=== PATIENT | male | born 1940 | race Caucasian/White ===

== ENCOUNTER 2016-10-05 10:55 | Outpatient (CLI) | payer MEDICARE | END 2016-10-05 10:56 | LOC: CARD 10:55 | PROVIDERS: ATTEND Internal Medicine Cardiovascular Disease | DX: I25.5 Ischemic cardiomyopathy (principal); I25.10 Atherosclerotic heart disease of native coronary artery without angina pectoris; R06.02 Shortness of breath ==

== ENCOUNTER 2016-10-19 12:42 | Outpatient (CLI) | payer MEDICARE ==
--- NOTE | 2016-10-20 01:27 | Diagnostic Imaging Report ---
Name: MARILYN FRANCIS ~~ ~~ : 36 ~~ Acc #: [id number]~~ DOS: Oct 19, 2016 1:15:32 PM CDT ~~ Mod: US ~~ Desc: US EXAM ABD BACK WALL 1 of 1 ANDRES MCDERMOTT~ [address] [address] ~ ~ ~ ~ Report Submission Date: Oct 19, 2016 3:34:58 PM CDT Patient ~ Study Name: MARILYN FRANCIS ~ Date: Oct 19, 2016 1:15:32 PM CDT ~ Modality Type: US Gender: M ~ Description: US EXAM ABD BACK WALL : 36 ~ Institution: [facility] Physician: ANDRES MCDERMOTT ~ ~ ~ ~ Ultrasound renal HISTORY: ~ Chronic kidney disease FINDINGS: ~ The right kidney measures 10.5 x 5.2 x 6.4 cm and exhibits normal parenchymal echogenicity and morphology without obstructive uropathy or nephrolithiasis. ~ The left kidney is also unremarkable and measures 11.2 x 6.3 x 5.6 cm. ~ Urinary bladder exhibits a moderate postvoid bladder residual and contains a midline cystic lesion along the bladder floor measuring 2.8 x 2.6 x 3 cm. IMPRESSION: ~ Unremarkable kidneys. ~ Cystic lesion along the bladder floor, potentially representing an ureterocele or prostate cystic mass. ~Consider cystoscopy for further evaluation. Moderate post void residual. ~ Electronically signed on Oct 19, 2016 3:34:58 PM CDT by: Andres LIRIANO
== END 2016-10-19 12:43 ==
LOC: RAD 12:42
PROVIDERS: ATTEND Internal Medicine Nephrology
DX: N18.3 Chronic kidney disease, stage 3 (moderate) (principal); I12.9 Hypertensive chronic kidney disease with stage 1 through stage 4 chronic kidney disease, or unspecified chronic kidney disease; E78.2 Mixed hyperlipidemia; L50.9 Urticaria, unspecified; I25.10 Atherosclerotic heart disease of native coronary artery without angina pectoris; R60.0 Localized edema; Z68.32 Body mass index [BMI] 32.0-32.9, adult
CPT/HCPCS: 76770

== ENCOUNTER 2016-11-21 11:06 | Outpatient (CLI) | payer MEDICARE, OTHER ==
[2016-11-21 12:10] LABS: BASOPHILS % 0.4 (0.0-1.5); EOSINOPHILS % 0.4 % (0.0-6.8); MEAN CORPUSCULAR HEMOGLOBIN 28.7 pg (28.0-34.0); MEAN CORPUSCULAR VOLUME 87.7 fl (80.0-100.0); MONOCYTES % 5.3 % (0.0-11.0); NEUTROPHILS # 9.4 # k/uL (1.4-7.7)
[2016-11-21 12:57] LABS: eGFR (African) > 60; eGFR (Non-African) > 60
--- NOTE | 2016-11-21 14:45 | Diagnostic Imaging Report ---
SOURAV MURDOCK - KESHIA [facility] [address] [facility] [address] [address] Report Submission Date: Nov 21, 2016 12:19:24 PM CDT Patient Study Name: MARILYN FRANCIS Date: Nov 21, 2016 11:42:15 AM CDT Modality Type: US Gender: M Description: BILAT US DVT : 36 Institution: [facility] Physician: SOURAV MURDOCK - KESHIA Duplex imaging of the lower extremities Clinical history: Left knee pain and swelling for 1 day. Rule out deep venous thrombosis. Technique: Real time sonography of the lower extremities is performed in transverse and longitudinal views. Doppler interrogation and color flow imaging are additionally used. Findings: Right lower extremity is free of intraluminal thrombus. Deep venous thrombosis is evident in the left lower extremity in the mid femoral vein extending into the popliteal vein. These veins are incompletely compressible. Interstitial edema is evident in the left calf. Impression: 1. Deep venous thrombosis on the left extending from mid femoral vein to the popliteal vein. 2. Interstitial edema in the left calf. Electronically signed on Nov 21, 2016 12:19:24 PM CDT by: William LIRIANO
== END 2016-11-21 11:07 ==
LOC: RAD 11:06
PROVIDERS: ATTEND Family Medicine
DX: M79.605 Pain in left leg (principal); Z51.81 Encounter for therapeutic drug level monitoring; Z79.01 Long term (current) use of anticoagulants
CPT/HCPCS: 36415; 80053; 80178; 85025; 85610; 93970

== ENCOUNTER 2017-04-29 16:00 | Emergency (ER) | payer MEDICARE ==
[2017-04-29 16:50] LABS: BASOPHILS % 0.7 (0.0-1.5); EOSINOPHILS % 2.9 % (0.0-6.8); MEAN CORPUSCULAR HEMOGLOBIN 29.9 pg (28.0-34.0); MEAN CORPUSCULAR VOLUME 86.7 fl (80.0-100.0); MONOCYTES % 5.1 % (0.0-11.0); NEUTROPHILS # 6.4 # k/uL (1.4-7.7)
[2017-04-29 16:55] LABS: eGFR (African) > 60; eGFR (Non-African) 52
--- NOTE | 2017-04-29 17:00 | Diagnostic Imaging Report ---
[facility] [address] [facility].[address] [address] Report Submission Date: Apr 29, 2017 4:51:41 PM CDT Patient Study Name: MARILYN FRANCIS Date: Apr 29, 2017 4:32:45 PM CDT Modality Type: CR Gender: M Description: CHEST : 36 Institution: [facility] Physician: PETE ISAAC - ER Examination: Portable chest History: Chest discomfort Comparison exam: None available Findings: Single view of the chest demonstrates a prominent cardiac and mediastinal silhouette. Mild hilar haziness. No effusion. Osseous structures are appropriate for age. Impression: Mild perihilar haziness. No gross effusion. Electronically signed on Apr 29, 2017 4:51:41 PM CDT by: Oh LIRIANO
--- NOTE | 2017-04-29 17:24 | ED Physician Documentation ---
General Adult - HISTORIAN Historian: patient - HPI Stated Complaint: chest pain Chief Complaint: General Adult Onset: days ago (1) Timing: still present Severity: moderate Further Comments: yes (Pt is a 76 yo male with c/o intermittent sharp stabbing pain at his L lower ribs x 1 day, which lasts only briefly and occurs with a deep breath or a cough or with movement. Pt has not had n/v, diaphoresis or sob. Pt took some Tylenol last evening but this was not very effective. Pt says that if he applies pressure and holds his chest, it does not hurt nearly so much when he coughs.) - ROS CONST: no problems EYES/ENT: none CVS/RESP: chest pain (intermittent stabbing pain) GI/: none MS/SKIN/LYMPH: none - PAST HX Past History: hypertension, other ([place], cardiac stents; GERD; anxiety) Allergies/Adverse Reactions: Allergies Allergy/AdvReac Type Severity Reaction Status Date / Time Zuqjiic-Jco-Qtr Reductase Allergy Verified 04/29/17 16:43 Inhibitor Home Medications: Ambulatory Orders Medication Instructions Recorded Bupropion HCl [Zyban] 150 mg PO BID 04/29/17 Buspirone HCl [Buspar] 10 mg PO BID 04/29/17 Clonazepam [Clonazepam] 0.5 mg PO HS 04/29/17 Doxazosin Mesylate [Cardura Xl] 4 mg PO DAILY 04/29/17 Furosemide [Lasix] 40 mg PO DAILY 04/29/17 Lisinopril [Zestril] 10 mg PO DAILY 04/29/17 [place] Carbonate [[place] 300 mg PO BID 04/29/17 Carbonate ER] Metoprolol Tartrate [Lopressor] 25 mg PO BID 04/29/17 Omeprazole 20 mg PO DAILY 04/29/17 Potassium Chloride [Klor-Con 10 mg PO DAILY 04/29/17 Sprinkle] Rivaroxaban [Xarelto] 20 mg PO DAILY 04/29/17 - SOCIAL HX Smoking History: quit greater than 1 year - FAMILY HX Family History: No - VITAL SIGNS Vital Signs: Vital Signs Temp Pulse Resp BP Pulse Ox 97.8 F 51 L 14 146/56 95 04/29/17 16:00 04/29/17 17:03 04/29/17 16:00 04/29/17 16:00 04/29/17 17:03 - REVIEWED ASSESSMENTS Nursing Assessment Reviewed: Yes Vitals Reviewed: Yes Progress - Progress Progress: CXR: Mild perihilar haziness. No gross effusion. Rx Z-geronimo NSAIDS ? pleuritic chest pain - EKG/XRAY/CT EKG: rhythm (sinus bradycardia, HR=54; ) XRAY: chest ( Mild perihilar haziness. No gross effusion.) ED Results Lab/Radiology - Lab Results Lab Results: Lab Results 04/29/17 04/29/17 04/29/17 16:40 16:40 16:40 WBC RBC Hgb Hct MCV MCH MCHC RDW Plt Count Neut % (Auto) Lymph % (Auto) Luna % (Auto) Eos % (Auto) Baso % (Auto) Neut # (Auto) Lymph # (Auto) Luna # (Auto) Eos # (Auto) Baso # (Auto) Reactive Lymphs % Reactive Lymphs # PT 12.5 Seconds H Seconds (9.4-11.6) INR 1.19 (0.9-1.2) D-Dimer 373 ng/mL ng/mL (6.0-682) Sodium 137 mmol/L mmol/L (137-145) Potassium 3.9 mmol/L mmol/L (3.5-5.1) Chloride 106 mmol/L mmol/L (98-107) Carbon Dioxide 23 mmol/L mmol/L (22-30) BUN 30 mg/dL H mg/dL (9-20) Creatinine 1.40 mg/dL H mg/dL (0.66-1.25) Estimated Creat Clear 69 Est GFR ( Amer) > 60 (60 - ) Est GFR (Non-Af Amer) 52 L (60 - ) Glucose 107 mg/dL H mg/dL (74-106) Calcium 8.9 mg/dL mg/dL (8.4-10.2) Total Bilirubin 0.3 mg/dL mg/dL (0.2-1.3) AST 25 U/L U/L (15-46) ALT 27 U/L U/L (13-69) Alkaline Phosphatase 71 U/L U/L (38-126) Creatine Kinase 51 U/L L U/L (55-170) CK-MB (CK-2) 1.9 ng/mL ng/mL (0.0-5.6) Troponin I < 0.03 ng/mL L ng/mL (0.03-0.06) NT-Pro-B Natriuret Pep 422.9 pg/mL pg/mL (15.0-450.0) Total Protein 7.2 g/dL g/dL (6.3-8.2) Albumin 3.7 g/dL g/dL (3.5-5.0) 04/29/17 16:40 WBC 9.60 K/ul K/ul (4.00-12.00) RBC 4.45 M/ul M/ul (3.90-5.20) Hgb 13.3 g/dL g/dL (12.0-18.0) Hct 38.6 % % (37.0-53.0) MCV 86.7 fl fl (80.0-100.0) MCH 29.9 pg pg (28.0-34.0) MCHC 34.5 g/dL g/dL (30.0-36.0) RDW 14.9 % H % (11.3-14.3) Plt Count 234 K/mm3 K/mm3 (130-400) Neut % (Auto) 67.2 % % (39.0-79.0) Lymph % (Auto) 21.8 % % (16.0-50.0) Luna % (Auto) 5.1 % % (0.0-11.0) Eos % (Auto) 2.9 % % (0.0-6.8) Baso % (Auto) 0.7 (0.0-1.5) Neut # (Auto) 6.4 # k/uL # k/uL (1.4-7.7) Lymph # (Auto) 2.1 # k/uL # k/uL (0.6-4.0) Luna # (Auto) 0.5 # k/uL # k/uL (0.0-0.9) Eos # (Auto) 0.3 # k/uL # k/uL (0.0-0.6) Baso # (Auto) 0.1 # k/uL # k/uL (0.0-0.5) Reactive Lymphs % 2.4 % % (0.0-5.0) Reactive Lymphs # 0.2 # k/uL # k/uL (0.0-0.8) PT INR D-Dimer Sodium Potassium Chloride Carbon Dioxide BUN Creatinine Estimated Creat Clear Est GFR ( Amer) Est GFR (Non-Af Amer) Glucose Calcium Total Bilirubin AST ALT Alkaline Phosphatase Creatine Kinase CK-MB (CK-2) Troponin I NT-Pro-B Natriuret Pep Total Protein Albumin - Orders Orders: ED Orders Category Date Time Status Continuous EKG monitoring Q30M Care 04/29/17 16:33 Active Continuous Pulse Oximetry Q30M Care 04/29/17 16:33 Active CHEST 1 VIEW [RAD] Stat Exams 04/29/17 16:33 Completed BNP [NT-proBNP] Stat Lab 04/29/17 16:40 Completed CBC/PLATELET/DIFF Routine Lab 04/29/17 16:40 Completed CKMB Stat Lab 04/29/17 16:40 Completed CMP Routine Lab 04/29/17 16:40 Completed CREATINE KINASE Routine Lab 04/29/17 16:40 Completed D DIMER Stat Lab 04/29/17 16:40 Completed PT-INR Routine Lab 04/29/17 16:40 Completed TROPONIN I (cTnI) Stat Lab 04/29/17 16:40 Completed Oxygen Daily Oxygen 04/29/17 16:45 Ordered EKG WITH COMPARISON Stat Ther 04/29/17 16:33 Completed General Adult Physical Exam - PHYSICAL EXAM GENERAL APPEARANCE: mild distress EENT: pharynx normal NECK: normal inspection, supple RESPIRATORY: no resp distress, chest non-tender, breath sounds normal CVS: bradycardia (pt report chronic bradycardia) ABDOMEN: soft, no organomegaly, normal bowel sounds BACK: normal inspection, no CVA tenderness SKIN: warm/dry, normal color EXTREMITIES: non-tender, normal range of motion, no evidence of injury, no edema NEURO: oriented X3, motor nml, sensation nml Discharge Clincal Impression: Non-cardiac chest pain, possible pleurisy Referrals: Matthias Rivera MD [Primary Care Provider] - Condition: Stable Disposition: 01 HOME, SELF-CARE Decision to Admit: NO Decision Time: 17:46
[2017-04-29 18:10] VITALS: BP 144/82
== END 2017-04-29 17:58 | disposition home or self-care (01) ==
LOC: ED 16:00
DX: R07.89 Other chest pain (principal)
CPT/HCPCS: 71010; 80053; 82550; 82553; 83880; 84484; 85025; 85379; 85610; 99283; S1016